=== PATIENT | male | born 1995 | race Caucasian/White ===

== ENCOUNTER 2016-06-20 06:48 | Day surgery (SDC) | payer OTHER ==
[2016-06-06 12:14] LABS: AMORPHOUS SEDIMENT,URINE TRACE /HPF; APPEARANCE,URINE SLIGHTLY-CLOUDY; BILIRUBIN,URINE NEGATIVE (NEGATIVE); GLUCOSE, URINE NEGATIVE (NEGATIVE); KETONES,URINE NEGATIVE (NEGATIVE); LEUKOCYTE ESTERASE,URINE NEGATIVE (NEGATIVE); NITRITE,URINE NEGATIVE (NEGATIVE); PROTEIN,URINE NEGATIVE (NEGATIVE); URINE SPECIFIC GRAVITY 1.019; UROBILINOGEN,URINE NEGATIVE mg/dL (<2.0)
[2016-06-06 12:16] LABS: HEMATOCRIT 44.7 % (37.9-51.0); HEMOGLOBIN 15.5 g/dL (13.5-17.0); HGB HCT DIFFERENCE 1.8; MEAN CORPUSCULAR HEMOGLOBIN 28.9 pg (27.0-33.4); MEAN CORPUSCULAR HGB CONC 34.5 g/dL (32.0-36.0); MEAN CORPUSCULAR VOLUME 84 fl (80-97); RED BLOOD COUNT 5.34 10^6/uL (4.35-5.55); RED CELL DISTRIBUTION WIDTH 12.8 % (11.5-14.0); WHITE BLOOD COUNT 7.9 10^3/uL (4.0-10.5)
[2016-06-06 12:39] LABS: ANION GAP 13 (5-19); BLOOD UREA NITROGEN 13 mg/dL (7-20); CALCIUM 10.1 mg/dL (8.4-10.2); CARBON DIOXIDE 29 mmol/L (22-30); CHLORIDE 103 mmol/L (98-107); CREATININE RESULT 0.98 mg/dL (0.52-1.25); GLUCOSE 88 mg/dL (75-110); POTASSIUM 3.7 mmol/L (3.6-5.0); SODIUM 144.8 mmol/L (137-145)
[~2016-06-20 06:48] MED LIST: CEFAZOLIN 2 GM/D5W RTU 2 GM/50 ML RTUPB IV PRN; LACTATED RINGERS 1000 ML IV PRN
[2016-06-20] MEDS ORDERED: BUPIVACAINE HCL 0.5 % INJ/PF 30 ML SDV ONE (07:47)
[2016-06-20] MEDS ORDERED: PROPOFOL INJ 200 MG/20 ML VIAL IV ONE (08:48)
[2016-06-20] MEDS ORDERED: FENTANYL CITRATE INJ/PF 250 MCG/5 ML AMPULE ONE (08:48)
[2016-06-20] MEDS ORDERED: MIDAZOLAM 2 MG/2 ML INJ ONE (08:48)
[2016-06-20] MEDS ORDERED: DEXMEDETOMIDINE INJ 80 MCG/20 ML VIAL IV ONE (08:49)
[2016-06-20] MEDS ORDERED: FENTANYL CITRATE INJ/PF 100 MCG/2 ML AMPUL IV PRN ×3 (09:30)
[2016-06-20] MEDS ORDERED: MORPHINE SULFATE 10 MG/ML INJ IV PRN (09:30)
[2016-06-20] MEDS ORDERED: PROMETHAZINE HCL INJ 25 MG/1 ML VIAL IV PRN ×2 (09:30)
[2016-06-20] MEDS ORDERED: MEPERIDINE HCL/PF INJ 25 MG/1 ML DISP.SYRIN IV PRN (09:30)
[2016-06-20] MEDS ORDERED: OXYCODONE-ACETAMINOPHEN 5-325 MG TABLET PO PRN ×3 (09:30→13:04)
[2016-06-20] MEDS ORDERED: DIPHENHYDRAMINE HCL 50 MG/ML VIAL IV PRN (09:30)
--- NOTE | 2016-06-20 13:01 | Operative Report ---
Operative Report DATE OF SURGERY: 06/20/16 PREOPERATIVE DIAGNOSIS: Right Scaphoid Nonunion POSTOPERATIVE DIAGNOSIS: Same OPERATION: Takedown Scaphoid Nonunion w/ Removal Hardware Placement of Vascularized Bone Graft (Palmarcarpal Arch) w/ Revision ORIF Right Scaphoid SURGEON: BRI ROTH ANESTHESIA: GA COMPLICATIONS: None ESTIMATED BLOOD LOSS: 25cc PROCEDURE: Indication for above procedure: 21-year-old male who sustained a scaphoid fracture. He subsequently underwent internal fixation with a headless compression screw. He had been doing well until CT scan continue demonstrate persistent nonunion. Despite the lack of pain we discussed treatment options including continued observation versus operative intervention which included takedown nonunion with revision ORIF with possible vascularized bone graft.. Risks and benefits were explained to the patient he verbalized understanding and consented for the procedure.: Procedure In Detail: Patient was seen and evaluated in the preoperative holding area. The RIGHT upper extremity was initialized and marked. Patient received 2g of Ancef IV for bacterial prophylaxis. Patient was taken back to the operative room where transferred to the operative table and placed under general anesthesia. Once they were adequately anesthetized a nonsterile tourniquet was placed on the upper extremity. A surgical team debriefing was performed ensuring all instrumentation was available, the surgical procedure was discussed with possible concerns reviewed. The upper extremity was prepped with chlorhexidine and alcohol and draped in a sterile fashion. A timeout was done identifying correct patient, procedure and extremity everyone in attendance agree with this and verbalized no concerns. The extremity was elevated and the tourniquet was inflated to 250 mmHg. Previous skin incision was utilized and extended proximally via the volar approach of Hi. Blunt dissection was performed to the soft tissues. The palmar cutaneous branch the median nerve was identified and protected throughout the entirety of the case. The FCR was then identified and retracted in a radial direction. The radial artery was also identified. The radial artery was freed from adjacent soft tissue. I then identified the palmar carpal arch along the distal aspect of the pronator quadratus. Once the pedicle was identified at her my attention to preparation of the scaphoid nonunion. The STT joint was opened and the previous scaphoid screw identified. It was removed in its entirety. Its track was then carefully curetted. The nonunion site was identified and a portion of the RSC ligament was released. The scaphoid nonunion site was then aggressively debrided utilizing rongeur and curettes until good appearing cancellus bone was identified. There was a fibrous union of the patient's scaphoid nonunion. The wrist was then extended and the defect to correct the humpback deformity was measured to be 12 x 12 x 15 millimeters. I then turned my attention to harvesting of the vascularized bone graft. Once again the pedicle was identified. I measured out the appropriate sized vascularized bone graft. The ulnar edge and distal edge was marked with K wires. C-arm fluoroscopy was utilized to confirm the bone graft site was not going to interfere with the DRUJ or lunate fossa. Once this was confirmed I measured once again the appropriate size graft. With a knife the graft edges were delineated. I then used the K wires to drill the confines of my graft. This was then completed with a 5 mm osteotome. Once the osteotome broke my fragment free it was carefully elevated. With Littler scissors I dissected out the pedicle carefully elevating it from the underlying bone taking a portion of the pronator fascia and periosteum with the pedicle to ensure its maintained vascularity. Any peripheral vasculature was carefully tied off. Patient had normal capillary refill and skin turgor. The branch of the I then freed the soft tissue between the pivot point of the pedicle to my scaphoid nonunion site. I obtained the appropriate length of my pedicle so it could reach the nonunion site. I then harvested cancellus bone graft from the distal radius. I turned my attention to preparation of the nonunion site once again. The tourniquet was deflated and a good perfusion of my vascularized graft and good bleeding cancellus bone from the scaphoid nonunion site. The wrist was fully flexed which corrected the DISI deformity and the lunate was pinned into position. I then extended the risk correcting the humpback deformity. K wire was then placed in the center center position of the scaphoid on multiple views and under direct visualization of the proximal fragment. It measured 26 mm and thus a 24 mm screw would be utilized. The cannulated drill was used to prepare a tract for my Acutrak compression screw. A second K wire was then placed as a derotational K wire. The wound was copiously irrigated with normal saline. The defect was packed with cancellus bone. I then transposed myovascular is bone graft and inserted into the fact. My derotational and Acutrak screw were reversed and obtain fixation into my vascularized bone graft avoiding the pedicle. The 24 mm Acutrak mini screw was then placed providing compression of my intercalated graft. Any remaining defects were filled with cancellus bone. The scaphoid moved as a unit under direct visualization and under fluoroscopy. Final fluoroscopy x-rays demonstrated jewish of my intra-scaphoid angle and correction of DISI deformity. I then further secured the scaphoid with a additional scaphoid capitate 4.5 mm K wire. The pedicle was further secured with interrupted 3-0 Vicryl suture. The RSC ligament was reapproximated with 3- 0 Vicryl suture. The wound was once again irrigated with normal saline. Proximal bone defect in the distal radius was packed with cancellus bone chips. Subcutaneous tissues were closed with interrupted 4-0 Monocryl suture. 20 mL of 0.5% Marcaine without epinephrine was injected for postoperative pain control. Skin was closed with interrupted 3-0 nylon suture. The pins were bent and cut above the skin and Xeroform was placed. Patient was placed in a well-padded thumb spica splint. Sponge counts, instrument counts, needle counts counts were correct. Patient was then awoken from anesthesia. Transferred from the operating room table to the operating room stretcher. There was no intraoperative complications patient tolerated procedure well stable to PACU. Postoperative plan: Patient will follow-up in office in 2 weeks at which point we will proceed with radiographs of the right wrist including scaphoid view. Patient will be placed in a thumb spica cast at that time. He will also begin his previous bone stimulator.
[2016-06-20] MEDS ORDERED: HYDROMORPHONE HCL INJ/PF 2 MG/ML AMPULE IV PRN (13:04)
[2016-06-20] MEDS ORDERED: ONDANSETRON HCL INJ/PF 4 MG/2 ML SDV IV PRN (13:04)
--- NOTE | 2016-06-20 13:06 | PDOC DISCHARGE SUMMARY ---
Discharge Summary (SDC) - Discharge Final Diagnosis: Right Scaphoid Nonunion Date of Surgery: 06/20/16 Discharge Date: 06/20/16 Treatment or Instructions: Schedule Follow Up w/ Dr. Kenton Rojas @ [facility] to be seen in 10-14 days or as scheduled [place]: [place]: [place]: Keep splint clean/dry/intact. Ice and elevate May begin finger range of motion attempting to make full fist. Stool softener of choice when on pain medication. Tobacco Cessation Prescriptions: Oxycodone HCl/Acetaminophen [Percocet 5-325 mg Tablet] 1 - 2 tab PO ASDIR PRN # 55 tablet PRN Reason: Discharge Diet: As Tolerated Respiratory Treatments at Home: Deep Breathing/Coughing Discharge Activity: No Lifting Over 10 Pounds, No Lifting/Push/Pulling Report the Following to Your Physician Immediately: Fever over 101 Degrees, Unusual Bleeding, Redness, Swelling, Warmth, Increased Soreness, Numbness, Tingling Sensation
[2016-06-20 14:29] VITALS: BP 119/71
[2016-06-20] MEDS ORDERED: METOCLOPRAMIDE HCL INJ/PF 10 MG/2 ML SDV ONE (14:37)
[2016-06-20] MEDS ORDERED: DEXAMETHASONE SOD PHOSPHATE INJ 4 MG/1 ML VIAL ONE (14:37)
[2016-06-20] MEDS ORDERED: ONDANSETRON HCL INJ/PF 4 MG/2 ML SDV ONE (14:37)
[2016-06-20] MEDS ORDERED: LIDOCAINE 2% INJ-PF (20 MG/ML) 10 ML AMPUL ONE (14:37)
[2016-06-20] MEDS ORDERED: SUCCINYLCHOLINE CHLORIDE INJ 200 MG/10 ML VIAL ONE (14:37)
== END 2016-06-20 14:40 | disposition home or self-care (01) ==
LOC: OROUT 06:48
PROVIDERS: ATTEND Orthopaedic Surgery
PROC: 0PRM07Z Replacement of Right Carpal with Autologous Tissue Substitute, Open Approach (ICD-10-PCS; 2016-06-20)
PROC: 0PSM04Z Reposition Right Carpal with Internal Fixation Device, Open Approach (ICD-10-PCS; principal; 2016-06-20 09:00)
DX: S62.001K Unspecified fracture of navicular [scaphoid] bone of right wrist, subsequent encounter for fracture with nonunion (principal); X58.XXXD Exposure to other specified factors, subsequent encounter; M25.531 Pain in right wrist
CPT/HCPCS: 36415; 85027; 80048; 81001; 73100; 25440; C1769 ×2; J2250; J1100; J3010; J2765; J0330; J2405; J2704; J3490; J0690; 01830